=== PATIENT | female | born 1975 | race Caucasian/White ===

== ENCOUNTER 2024-07-11 13:57 | Emergency (ER) | payer OTHER, SELFPAY ==
[2024-07-11 14:09] VITALS: BP 109/79
[2024-07-11 14:43] LABS: % Basophils 0.9 % (0-2); % Eosinophils 3.4 % (0-6); % Immature Granulocytes 0.4 % (0-0.5); % Lymphocytes 18.9 % (20.5-51.1); % Monocytes 4.5 % (1.7-9.3); % Neutrophils 71.9 % (42.2-75.2); Absolute Basophils 0.1 10^3/uL (0-0.2); Absolute Eosinophils 0.4 10^3/uL (0-0.7); Absolute Lymphocytes 1.9 10^3/uL (1.2-3.4); Absolute Monocytes 0.5 10^3/uL (0.1-0.6); Absolute Neutrophils 7.3 10^3/uL (1.4-6.5); Hematocrit 41.1 % (37.0-47.0); Hemoglobin 13.7 g/dL (12.0-16.0); Mean Corp Hgb Conc. 33.3 g/dL (33.0-37.0); Mean Corpuscular Hgb 29.9 pg (27.0-31.0); Mean Corpuscular Volume 89.7 fL (81.0-99.0); Mean Platelet Volume 9.5 fL (7.4-10.4); Nucleated Red Blood Cells % 0 %; Platelet Count 231 10^3/uL (130-400); Red Blood Cell Count 4.58 10^6/uL (4.20-5.40); Red Cell Dist. Width 13.2 % (11.5-14.5); White Blood Cell Count 10.2 10^3/uL (4.8-10.8)
[2024-07-11 14:46] LABS: Urine Albumin Negative (Neg - Trace); Urine Bilirubin Negative (Negative); Urine Character Clear (Clear); Urine Color Yellow; Urine Glucose Negative (Negative); Urine Ketone Negative (Negative); Urine Leukocyte Negative (Negative); Urine Nitrite Negative (Negative); Urine Occult Blood Negative (Negative); Urine Urobilinogen Negative (Neg - 1+)
[2024-07-11 15:01] LABS: ALT (SGPT) 20 U/L (0-35); AST (SGOT) 29 U/L (14-36); Albumin 4.5 g/dl (3.5-5.0); Alkaline Phosphatase 67 U/L (38-126); Blood Urea Nitrogen 13 mg/dl (7-17); Calcium 9.2 mg/dl (8.4-10.2); Carbon Dioxide 26 mmol/L (22-30); Chloride 103 mmol/L (98-107); Glucose 101 mg/dl (70-99); Potassium 4.2 mmol/L (3.5-5.1); Sodium 139 mmol/L (135-145); Total Bilirubin 0.4 mg/dl (0.2-1.3); Total Protein 6.6 g/dl (6.3-8.2); eGFR > 60.00
--- NOTE | 2024-07-11 15:10 | ED.GENMED ---
History of Present Illness
<BERE Farfan - Last Filed: 07/12/24 08:17>
General
Chief Complaint: Abdominal Pain
Source: patient
Exam Limitations: none
Time Seen by Provider: 07/11/24 14:36
Nursing documentation reviewed up to this point in time: agreed with
History of Present Illness
History of Present Illness:
Patient is a 49-year-old female who presents to the ER for evaluation. Patient reports she had sudden onset of left back/posterior rib pain that wraps around to her left front rib about 1 and half hours ago. It started spontaneously. She was
outside moving thing but denies injury. She denies any shortness of breath she does feel it more which takes a deep breath. She denies any abdominal pain nausea vomiting. She denies any other chest pain. She is not on oral contraceptives. She
does not smoke
No history of kidney stones. She does not believe she injured her self.
In addition she is intermittently tearful during exam speaking about her alcohol abuse. She is aware that she has a problem with alcohol and is open to help. She currently is going to AA meetings but reports that is not working because the longest
she has gone without a drink is 3 days.
She has no history of withdrawal seizures.
Review of Systems
<BERE Farfan - Last Filed: 07/12/24 08:17>
Review of Systems
Allergies reviewed?: Yes
All Other Systems: ROS reviewed and negative except as documented in HPI and ROS
Constitutional: Reports no symptoms
Respiratory: Reports no symptoms
Cardiac: Reports no symptoms
ABD/GI: Denies abdominal pain, nausea or vomiting
Musculoskeletal: Reports back pain (left back rib pain radiating to left rib)
Skin: Reports no symptoms
Neurological: Reports no symptoms
Psychiatric: Reports no symptoms
Phy Exam
<BERE Farfan - Last Filed: 07/12/24 08:17>
General Physical Exam
General Presentation: no apparent distress
General age: appears stated age
General Skin: warm and dry
General Habitus: normal
General Mental: alert
General Hydration: appears well hydrated
Cardiovascular Exam
Cardiovascular Exam: regular rate/rhythm, no murmur and normal peripheral pulses
Pulmonary Exam
Pulmonary Exam: lungs clear and chest non tender
Gastrointestinal Exam
Gastrointestinal Exam: non tender and soft
Neurological Exam
Neurological Exam: alert and oriented x3
Musculoskeletal Exam
Musculoskeletal Exam: other (normal inspection to back/rib nontender to palpation)
Skin Exam
Skin Exam: normal color, warm/dry and no rash
Psychiatric Exam
Psychiatric Exam: normal mood/affect
Course
<BERE Farfan - Last Filed: 07/12/24 08:17>
Orders/Labs/Results
Orders:
Orders
07/11/24 14:35
CMP [Comprehensive Metabolic Panel] Urgent
Complete Blood Count/With Diff Urgent
Lipase Urgent
Comment: LIPASE ADDED ON BY FLOOR 3:30PM 07-11-24
Urinalysis Reflex To Culture Urgent
Date Specimen was Collected: 07/11/24
Time Specimen was Collected: 14:28
07/11/24 15:24
Add On- LAB Urgent
Tests Added?: lipase
07/11/24 15:32
Electrocardiogram (*1) Stat
Reason for Study: Other
Other Reason for Exam: chest pain
EKG- Treatment ONCE
07/11/24 15:36
DDimer [D-Dimer] Urgent
07/11/24 16:11
Chest [CR Chest - 2 Views ] Urgent
Comment:
Reason For Exam: left rib pain
Abnormal Lab Results
07/11/24
14:35
Absolute Neuts (auto) 7.3 H 10^3/uL
(1.4-6.5)
Lymphocytes % 18.9 L %
(20.5-51.1)
Glucose 101 H mg/dl
(70-99)
07/11/24 14:35
07/11/24 14:35
Vital Signs
Initial and Last Documented VS:
Initial Vital Signs
Temp Pulse Resp BP Pulse Ox
98.2 F 84 18 109/79 98
07/11/24 14:09 07/11/24 14:09 07/11/24 14:09 07/11/24 14:09 07/11/24 14:09
Last Documented Vital Signs
Temp Pulse Resp BP Pulse Ox
98.2 F 84 18 108/74 97
07/11/24 14:09 07/11/24 18:32 07/11/24 14:09 07/11/24 18:32 07/11/24 18:32
Rn Emergency consulted with Physician
Rn Emergency consulted with physician?: Yes
Name of Physician Consulted: Yovanny
<Kelvin Hairston MD - Last Filed: 07/11/24 18:45>
Orders/Labs/Results
Orders:
Orders
07/11/24 14:35
CMP [Comprehensive Metabolic Panel] Urgent
Complete Blood Count/With Diff Urgent
Lipase Urgent
Comment: LIPASE ADDED ON BY FLOOR 3:30PM 07-11-24
Urinalysis Reflex To Culture Urgent
Date Specimen was Collected: 07/11/24
Time Specimen was Collected: 14:28
07/11/24 15:24
Add On- LAB Urgent
Tests Added?: lipase
07/11/24 15:32
Electrocardiogram (*1) Stat
Reason for Study: Other
Other Reason for Exam: chest pain
EKG- Treatment ONCE
07/11/24 15:36
DDimer [D-Dimer] Urgent
07/11/24 16:11
Chest [CR Chest - 2 Views ] Urgent
Comment:
Reason For Exam: left rib pain
Abnormal Lab Results
07/11/24
14:35
Absolute Neuts (auto) 7.3 H 10^3/uL
(1.4-6.5)
Lymphocytes % 18.9 L %
(20.5-51.1)
Glucose 101 H mg/dl
(70-99)
07/11/24 14:35
07/11/24 14:35
Vital Signs
Initial and Last Documented VS:
Initial Vital Signs
Temp Pulse Resp BP Pulse Ox
98.2 F 84 18 109/79 98
07/11/24 14:09 07/11/24 14:09 07/11/24 14:09 07/11/24 14:09 07/11/24 14:09
Last Documented Vital Signs
Temp Pulse Resp BP Pulse Ox
98.2 F 84 18 108/74 97
07/11/24 14:09 07/11/24 18:32 07/11/24 14:09 07/11/24 18:32 07/11/24 18:32
<BERE Farfan - Last Filed: 07/12/24 08:17>
MDM/Problems Addressed
Differential Diagnosis Includes:
Not limited to muscle pain, renal stone, less likely PE, alcohol abuse
MDM/Problems Addressed:
As documented patient is a 41-year-old female with history of alcohol abuse history of depression in the past presents to the ER for evaluation of left back pain. Patient noticed this suddenly prior to arrival she was outside but denies any exact
injury. She had no associated shortness of breath she initially felt it worse with breathing. She denies any abdominal pain nausea vomiting fever chills urinary symptoms. Patient is no history of kidney stone. On exam patient reports that she is
actually much better she is not hypoxic nontachycardic nontachypneic afebrile in no acute distress. White count is normal chemistries are normal and UA is negative. D-dimer was done and negative. No acute findings on chest x-ray. No true cause
for patient's pain however she does mention she feels it is slightly worse with movement likely muscular.
In addition to patient's physical complaint patient has a history of alcohol abuse and has been going to intermittent meetings for AA however did request to speak to the [facility]. They were able to set her up with outpatient treatment. She declined
inpatient. She typically will get to day 3 before she starts drinking again on day 4. At this point she seems to feel that she withdrawals. Case reviewed with ED physician who did evaluate patient will give patient a very small prescription for
Ativan to take only as needed. I had a long discussion with patient to absolutely not take with alcohol and to try to only take as needed for withdrawal.
She is stable for discharge home.
<BERE Farfan - Last Filed: 07/12/24 08:17>
*Critical Care Note
Total Time (30-74mins, 75-104mins- exclusive of procedures): Not Applicable
ED Attending Note
<BERE Farfan - Last Filed: 07/12/24 08:17>
-
Portions of this chart may have been created with voice recognition software.� Occasional wrong word or��sound alike� substitutions may have occurred due to the inherent limitations of voice recognition software.
<Kelvin Hairston MD - Last Filed: 07/11/24 18:45>
ED Attending Note
Patient seen and examined by attending physician: Yes
I performed the substantive portion of visit, reviewed & personally made and approve the management plan that is documented in note by myself or SAUL.: Yes
ED Attending Note:
Patient presents with 2 primary complaints. #1 is this nontraumatic left subscapular pain. This started earlier today. She had been lifting boxes. Pain is much better at this time. Pain is worse with twisting turning and movement. She denies
pleuritic pain shortness of breath. Pain initially radiated around to the left upper quadrant but has subsequently resolved. Denies urinary symptoms general abdominal pain or other complaints. Also patient wants help for her alcohol issues. She
states when she gets to about the 3 she ends up drinking again with concerns for withdrawal.
On exam patient is nontoxic in no distress. Lungs are clear and equal. Heart regular rate and rhythm no murmur. She has no rash. Abdomen soft and nontender. No liver or spleen palpable. Warm and dry perfusing well.
No serious etiology found for patient's pain. Labs are normal D-dimer normal chest x-ray negative. She does have a long QT interval which was discussed with the patient. She has no description of syncope or arrhythmia issues. Very likely get a
skeletal. Do not feel CT scan is warranted at this time. As for her alcohol issues she has been seen by [facility].... They have arranged close follow-up. After lengthy discussion with the patient I am comfortable with a small prescription for
Ativan if she needs it for withdrawal day 3 or 4. I did however stressed that she cannot do this with alcohol which he reassures me she will not.
Discharge Plan
Departure
Patient Disposition: Home (Routine Discharge)
Date of Disposition: 07/11/24
Time of Disposition: 18:15
Patient with high blood pressure during this ER visit?: No
Condition: Fair
Covid-19: Not Applicable
Discharge Problem:
Back pain, Alcohol abuse
Instructions: Alcohol Use Disorder ED, Back Pain
Prescriptions:
New
lorazepam [Ativan] 0.5 mg tablet
0.5 mg PO TID PRN (Reason: alcohol withdrawal) Qty: 6 0RF
Referrals:
Nan Staton, DO [Active] -
UNKNOWN - PT DOES,NOT KNOW [Family Provider] -
Activity Restrictions/Additional Instructions:
As discussed there were no concerning findings for the cause of your back pain. This may be muscular. Follow-up with your family doctor in the next several days for reevaluation
As discussed your EKG has a slight abnormality. You have what is called a a prolonged QT .this will need evaluation by cardiology(to ensure monitoring)
Also as discussed you will be given a prescription for Ativan 0.5 mg. This medication was sent to your pharmacy. Please take this only as needed if you feel you are starting to go in withdrawal. This medication will cause drowsiness. no driving
and absolutely no drinking alcohol while on medication .
You were given resources for outpatient alcohol programs.
Return to the ER if any worsening of symptoms
Interventions
Interventions:
*Risk Screen - Suicide Last Done: 07/11/24 14:37
*General Assessment Last Done: 07/11/24 14:37
*Neglect/Abuse Screening Last Done: 07/11/24 14:37
*ED COVID-19 Vaccine History Last Done: 07/11/24 14:37
*Nursing Disposition Last Done: 07/11/24 18:32
CL-Xqwdqt-Ehezeozlqb Assessment Last Done: 07/11/24 14:37
Discharge Date and Time
Discharge Date/Time: 07/11/24 18:34
Print Language: [place]
[2024-07-11 15:53] LABS: Lipase 92 U/L (23-300)
[2024-07-11 16:01] LABS: D-Dimer 0.33 ug/mlFEU (0.00-0.50)
[2024-07-11 18:32] VITALS: BP 108/74
== END 2024-07-11 18:34 | disposition home or self-care (01) ==
LOC: EMR 13:57
PROVIDERS: Nurse Practitioner; EMERGENCY PHYSICIAN Emergency Medicine
DX: M54.9 Dorsalgia, unspecified (principal); F10.10 Alcohol abuse, uncomplicated
CPT/HCPCS: 99285; 71046; 80053; 81003; 83690; 85025; 85379; 93005

== ENCOUNTER 2025-07-26 20:55 | Emergency (ER) | payer OTHER, SELFPAY ==
[2025-07-26 20:59] VITALS: BP 134/87
[2025-07-26 21:24] LABS: Hematocrit 39.5 % (37.0-47.0); Hemoglobin 13.5 g/dL (12.0-16.0); Mean Corp Hgb Conc. 34.2 g/dL (33.0-37.0); Mean Corpuscular Volume 85.5 fL (81.0-99.0); Nucleated Red Blood Cells % 0 %; Platelet Count 245 10^3/uL (130-400); Red Cell Dist. Width 12.1 % (11.5-14.5)
[2025-07-26 21:39] LABS: Ammonia < 9 umol/L (9-30)
[2025-07-26 21:51] LABS: ALT (SGPT) 14 U/L (0-35); AST (SGOT) 17 U/L (14-36); Albumin 4.3 g/dl (3.5-5.0); Alkaline Phosphatase 52 U/L (38-126); Blood Urea Nitrogen 3 mg/dl (7-17); Calcium 9.6 mg/dl (8.4-10.2); Carbon Dioxide 27 mmol/L (22-30); Chloride 102 mmol/L (98-107); Glucose 146 mg/dl (70-99); Potassium 3.4 mmol/L (3.5-5.1); Sodium 135 mmol/L (135-145); Total Protein 6.7 g/dl (6.3-8.2); eGFR > 60.00
[2025-07-26] MEDS: ATIVAN 0.5 MG PO (23:38)
[2025-07-26] MEDS: REGLAN 10 MG IV (23:48)
[2025-07-26] MEDS: NSS 1000 IV (23:48)
[2025-07-26] MEDS: BENADRYL 25 MG IV (23:51)
[2025-07-26 23:55] VITALS: BMI 21.0
[2025-07-27 00:01] VITALS: BP 117/80
--- NOTE | 2025-07-27 00:05 | ED.GENMED ---
History of Present Illness
General
Chief Complaint: Anxiety
Source: patient
Time Seen by Provider: 07/26/25 22:39
History of Present Illness
History of Present Illness:
50-year-old female with past medical history of alcohol abuse presenting to the ER for evaluation of anxiety and difficulty sleeping since she was released from her detox facility this past . Patient was inpatient for 1 week, states has not
drank in the last 10 to 11 days and states she does not have a want to drink again but is more concerned about an inability to sleep and an overwhelming anxiety feeling. Patient reports that she did well on the medications provided to her at the
detox facility and was given scripts for Zoloft and trazodone but states she does not feel that this is currently helping. She currently does not have a primary care provider or outpatient psychiatry/therapist but notes that she was trying to find
somebody today for follow-up. She has no other physical symptoms at this time but does state she felt somewhat forgetful today.
Past History
Past History
ED Past Medical History: Psychiatric
ED Past Surgical History: Cholecystectomy
Social History
Tobacco: Non-smoker
Alcohol: Chronic alcoholic
Drug: None
Personal: Single
Living: with family
Review of Systems
Review of Systems
All Other Systems: ROS reviewed and negative except as documented in HPI and ROS
Phy Exam
Physical Exam
Physical Exam:
GENERAL: Alert , in no apparent distress
HEAD: Normocephalic atraumatic
EYE: conjunctiva clear
NECK: Supple
ENT: o/p clr, mmm.
CARDIAC: Regular rate and rhythm
LUNGS: Clear breath sounds bilaterally, no acute respiratory distress, no wheezes/rales/rhonchi
NEUROLOGICAL: Alert and oriented
SKIN: Warm and dry, skin intact.
MUSCULOSKELETAL: well perfused.
PSYCH: Normal and appropriate interaction.
Scores
Heart Failure Risk
Heart Failure Risk Score: Not Applicable
Heart Score for Chest Pain Patients
STEMI patient?: Not applicable
Withdrawal Assessment of Alcohol
Withdrawal Assessment Completed?: Not applicable
Course
Orders/Labs/Results
Orders:
Orders
07/26/25 21:16
Ammonia Urgent
Complete Blood Count/With Diff Urgent
Comprehensive Metabolic Panel Urgent
TSH Reflex To Free T4 Urgent
07/26/25 23:18
Diphenhydramine [Benadryl] 25 mg IV NOW STA
Lorazepam [Ativan] 0.5 mg PO NOW STA
Metoclopramide [Reglan] 10 mg IV NOW STA
07/26/25 23:19
0.9% Sodium Chloride 1000 ml [Nss] 1,000 ml IV BOLUS
07/26/25 23:50
Albuterol Nebs [Ventolin Nebules] 2.5 mg INH R NOW STA
Abnormal Lab Results
07/26/25
21:16
Potassium 3.4 L mmol/L
(3.5-5.1)
BUN 3 L mg/dl
(7-17)
Creatinine 0.5 L mg/dL
(0.6-1.0)
Glucose 146 H mg/dl
(70-99)
Ammonia < 9 L umol/L
(9-30)
07/26/25 21:16
07/26/25 21:16
Vital Signs
Initial and Last Documented VS:
Initial Vital Signs
Temp Pulse Resp BP Pulse Ox
98.5 F 95 16 134/87 99
07/26/25 20:59 07/26/25 20:59 07/26/25 20:59 07/26/25 20:59 07/26/25 20:59
Last Documented Vital Signs
Temp Pulse Resp BP Pulse Ox
98.5 F 95 16 95/69 94
07/26/25 20:59 07/26/25 20:59 07/26/25 20:59 07/27/25 01:00 07/27/25 01:30
MDM/Problems Addressed
Differential Diagnosis Includes:
Generalized anxiety disorder
Patient has not had alcohol in 10 days so suspicion for acute alcohol withdrawal is very low
Medication interaction
No concern for infectious etiology
MDM/Problems Addressed:
50-year-old female with past medical history of chronic alcohol use presenting to the emergency department for evaluation of increased anxiety over the last few days, was started on Zoloft and trazodone but notes still having symptoms. Labs
initiated on arrival are reassuring. Will consult with crisis for outpatient therapy, primary care referral hotline noted to help patient with obtaining a primary care provider. Will provide with a short-term course of Ativan for home use. At the
completion of exam patient did note a headache, will treat with Reglan and Benadryl as this will likely help with headache as well as provide patient with a little bit of sleep
Chronic conditions affecting care: Psychiatric illness (Chronic alcoholic)
*Pulse Oximetry
SaO2: 99
Oxygen Mode of Delivery: Room air
Patient hypoxic: no
*Critical Care Note
Total Time (30-74mins, 75-104mins- exclusive of procedures): Not Applicable
Data Reviewed
Review of Other/Old Records Reveals: Records
Patient Management
Escalation/DeEscalation of care consider admission/obs:
Following medications patient was noted to be sleeping for an extended period of time and in no acute distress. She was awake and then reports feeling much better and without any further headache. She was provided with information for outpatient
therapy as well as primary care referral line was notified. Short-term prescription for Ativan to be used as needed sent to pharmacy. Patient aware of return cautions to the ER.
ED Attending Note
-
Portions of this chart may have been created with voice recognition software.� Occasional wrong word or��sound alike� substitutions may have occurred due to the inherent limitations of voice recognition software.
Discharge Plan
Departure
Patient Disposition: Home (Routine Discharge)
Date of Disposition: 07/27/25
Time of Disposition: 01:48
Patient with high blood pressure during this ER visit?: No
Discharge Problem:
Anxiety
Instructions: Anxiety, Adult (DC)
Prescriptions:
New
lorazepam [Ativan] 0.5 mg tablet
0.5 mg PO HS PRN (Reason: anxiety) Qty: 6 0RF
No Action
lorazepam [Ativan] 0.5 mg tablet
0.5 mg PO TID PRN (Reason: alcohol withdrawal) Qty: 6 0RF
Referrals:
NONE,* [Family Provider, Internal Medicine]
Interventions
Interventions:
*Risk Screen - Suicide Last Done: 07/26/25 20:59
*General Assessment Last Done: 07/26/25 20:59
*Neglect/Abuse Screening Last Done: 07/26/25 23:55
*ED- Fall Risk Assessment Last Done: 07/26/25 20:59
*ED COVID-19 Vaccine History Last Done: 07/26/25 20:59
*Nursing Disposition Last Done: 07/27/25 02:05
ED-Psychological Assessment Last Done: 07/26/25 23:55
Discharge Date and Time
Print Language: CRO[place]
[2025-07-27 01:00] VITALS: BP 95/69
== END 2025-07-27 02:13 | disposition home or self-care (01) ==
LOC: EMR 20:55
PROVIDERS: EMERGENCY PHYSICIAN Emergency Medicine
DX: F41.9 Anxiety disorder, unspecified (principal); Z90.49 Acquired absence of other specified parts of digestive tract; F10.10 Alcohol abuse, uncomplicated
CPT/HCPCS: 99283; 80053; 82140; 84443; 85025